=== PATIENT | male | born 1955 | race Caucasian/White ===

== ENCOUNTER 2019-02-27 11:05 | Inpatient (IN) | payer MEDICAID, OTHER ==
[~2019-02-27] VITALS: Ht 190.5 cm; Wt 151.7 kg
[2019-02-27 12:16] LABS: Basophils # (auto) 0 uL; Basophils % (auto) 0.4 % (0.0-2.0); Eosinophils # (auto) 0 uL; Monocytes # (auto) 0.3 uL
[2019-02-27 12:19] LABS: Hematocrit 26.5 % (41.0-53.0); Hemoglobin 8.5 g/dL (13.5-17.5); Lymphocytes # (auto) 0.6 uL; Lymphocytes % (auto) 7.9 % (10.0-50.0); Mean Corpuscular Hemoglobin 28.2 pg (28.0-32.0); Mean Corpuscular Hgb Conc. 31.9 g/dL (32.0-36.0); Mean Corpuscular Volume 88.6 fL (80.0-100.0); Neutrophils # (auto) 6.8 uL; Neutrophils % (auto) 87.7 % (37.0-80.0); Nucleated Red Blood Cells % 0.1 %; Platelet Count (auto) 215 10^3/uL (140-450); Red Blood Cells 2.99 10^6/uL (4.5-5.90); Red Cell Distribution Width 16.4 % (11.8-14.3); White Blood Cell 7.7 10^3/uL (4.4-10.8)
[2019-02-27 12:34] LABS: Alanine Aminotransferase 13 U/L (16-61); Albumin 2.7 g/dL (3.4-5.0); Anion Gap 12 (5-15); Aspartate Aminotransferase 10 U/L (15-37); BUN/Creatinine Ratio 45.8; Blood Urea Nitrogen 66 mg/dL (7-18); Carbon Dioxide 24 mmol/L (21-32); Chloride 109 mmol/L (98-107); GFR African American 64 mL/min; GFR Non-African American 53 mL/min; Glucose 164 mg/dL (74-106); Potassium 4.5 mmol/L (3.5-5.1); Sodium 145 mmol/L (136-145)
[2019-02-27 12:37] LABS: INR 1.27 (0.9-1.15); Partial Thromboplastin Time 24.6 sec (23.64-32.05)
[2019-02-27 12:39] LABS: Alkaline Phosphatase 60 U/L (45-117); Bilirubin, Total 0.5 mg/dL (0.2-1.0); Total Protein 5.9 g/dL (6.4-8.2)
[2019-02-27 14:49] LABS: Urine Bacteria NONE SEEN /hpf (None Seen); Urine Blood Negative /uL (Negative); Urine Specific Gravity 1.022 (1.001-1.035); Urine WBC <1 /hpf (0 - 3)
[2019-02-27] MEDS ORDERED: AMIODARONE HCL 150 MG in D5W 5% 100 ML IV ONE (15:00)
[2019-02-27] MEDS ORDERED: AMIODARONE HCL 900 MG in DEXTROSE 500 ML IV SCH ×3 (15:09→21:13)
[2019-02-27] MEDS ORDERED: NITROGLYCERIN 0.4 MG SL TAB SL PRN (17:15)
[2019-02-27] MEDS ORDERED: MORPHINE SULF INJ 2 MG/ML SYRINGE 1ML IV PRN (17:15)
[2019-02-27] MEDS ORDERED: LACTULOSE 20Gm/30ML SOLN PO PRN (17:15)
[2019-02-27] MEDS ORDERED: PANTOPRAZOLE 40 MG/10 ML VIAL INJ IV ONE (17:15)
[2019-02-27] MEDS ORDERED: DEXTROSE (50%) 50ML SYRG IV PRN (17:15)
[2019-02-27] MEDS: SODIUM CHLORIDE 0.9% 1,000 ML IV SCH ×2 (17:27→21:57)
[2019-02-27] MEDS: ACCU-CHEK COMFORT CURVE STRIP VI SCH ×2 (18:18→23:51)
[2019-02-27 19:14] LABS: Hemoglobin 8.6 g/dL (13.5-17.5)
[2019-02-27 21:00] VITALS: BP 130/88
[2019-02-27] MEDS: CEFOTETAN 1GM/D5W 50ML BAG 50 ML IV SCH (21:38)
[2019-02-27] MEDS: CARVEDILOL 3.125 MG TAB PO SCH (21:39)
[2019-02-27] MEDS: PANTOPRAZOLE 40 MG TAB PO SCH (21:39)
[2019-02-27] MEDS ORDERED: ZOLPIDEM TARTRATE 5 MG TAB ONE (23:42)
[2019-02-27] MEDS ORDERED: ZOLPIDEM TARTRATE 5 MG TAB PO PRN (23:45)
[2019-02-28] VITALS (8 sets, daily range): BP systolic 110–153; BP diastolic 60–77
[2019-02-28 01:05] LABS: Hematocrit 23.3 % (41.0-53.0); Hemoglobin 7.3 g/dL (13.5-17.5)
[2019-02-28 05:09] LABS: Hematocrit 20.3 % (41.0-53.0)
[2019-02-28 05:18] LABS: Hemoglobin 6.6 g/dL (13.5-17.5)
[2019-02-28] MEDS: ACCU-CHEK COMFORT CURVE STRIP VI SCH ×2 (05:28→11:46)
[2019-02-28] MEDS: CARVEDILOL 3.125 MG TAB PO SCH (09:57)
[2019-02-28] MEDS: CEFOTETAN 1GM/D5W 50ML BAG 50 ML IV SCH (09:57)
[2019-02-28] MEDS: PANTOPRAZOLE 40 MG TAB PO SCH (09:58)
[2019-02-28 11:58] LABS: Hematocrit 24.2 % (41.0-53.0); Hemoglobin 7.7 g/dL (13.5-17.5)
== END 2019-02-28 16:20 | disposition left against medical advice (07) | DRG 253 ==
LOC: ER 11:05 → EDBD 11:05 → TELE 11:06 → DOU IN ICU 20:38
PROVIDERS: ADMIT Internal Medicine; ATTEND Internal Medicine
PROC: 30233N1 Transfusion of Nonautologous Red Blood Cells into Peripheral Vein, Percutaneous Approach (ICD-10-PCS; principal; 2019-02-28)
DX: K92.2 Gastrointestinal hemorrhage, unspecified (principal); N17.0 Acute kidney failure with tubular necrosis; I50.9 Heart failure, unspecified; E66.01 Morbid (severe) obesity due to excess calories; I48.91 Unspecified atrial fibrillation; R73.9 Hyperglycemia, unspecified; Z53.20 Procedure and treatment not carried out because of patient's decision for unspecified reasons; D64.9 Anemia, unspecified; N18.9 Chronic kidney disease, unspecified; Z53.21 Procedure and treatment not carried out due to patient leaving prior to being seen by health care provider; Z86.718 Personal history of other venous thrombosis and embolism; Z85.47 Personal history of malignant neoplasm of testis; Z79.01 Long term (current) use of anticoagulants; Z87.11 Personal history of peptic ulcer disease; Z91.19 Patient's noncompliance with other medical treatment and regimen; Z90.79 Acquired absence of other genital organ(s); Z86.711 Personal history of pulmonary embolism; Z68.41 Body mass index [BMI] 40.0-44.9, adult
CPT/HCPCS: 36415; 51702; 71045; 74176; 80053; 81001; 82270; 82550; 82962; 83036; 83880; 84484; 85014; 85018; 85025; 85045; 85610; 85730; 86850; 86900; 86901; 86920; 87081; 93005; 93970; 94761; 96365; 96366; 96375; C9113; G0378; J7060